=== PATIENT | male | born 1995 | race Caucasian/White ===

== ENCOUNTER 2021-01-23 23:19 | Emergency (ER) | payer MEDICAID, OTHER ==
[~2021-01-23] VITALS: Ht 170.2 cm; Wt 87.0 kg
[2021-01-23] MEDS ORDERED: LORAZEPAM 2MG/ML CPJ IV STA (23:41)
[2021-01-23] MEDS ORDERED: ONDANSETRON HCL 4MG/2ML INJ IV STA (23:41)
[2021-01-23] MEDS ORDERED: SODIUM CHLORIDE 0.9% 1,000 ML IV ONE (23:45)
[2021-01-23 23:58] LABS: BASOPHILS % 1.2 % (0.0-2.0); EOSINOPHILS % 0.9 % (0.0-5.0); HEMATOCRIT. 41.3 % (42.0-52.0); LYMPHOCYTES % 25.7 % (20.0-50.0); MEAN CORPUSCULAR HEMOGLOBIN 28.5 pg (28.0-32.0); MEAN CORPUSCULAR VOLUME 83.9 fL (80.0-94.0); MEAN PLATELET VOLUME 7.8 fl (7.4-10.4); MONOCYTES % 7.2 % (2.0-8.0); PLATELET 523 x1000/uL (130-400); RED BLOOD CELL COUNT 4.92 mill/uL (4.7-6.1); RED CELL DISTRIBUTION WIDTH 14.8 % (11.6-14.6)
[2021-01-24 00:07] LABS: CHLORIDE 94 mEq/L (98-107)
[2021-01-24 00:11] LABS: ETHANOL BLOOD < 10 mg/dL
[2021-01-24 04:30] VITALS: BP 152/90
== END 2021-01-24 04:38 | disposition home or self-care (01) ==
LOC: ER 23:19
DX: I47.1 Supraventricular tachycardia (principal); T40.7X1A Poisoning by cannabis (derivatives), accidental (unintentional), initial encounter; Y92.9 Unspecified place or not applicable; F12.921 Cannabis use, unspecified with intoxication delirium; R11.10 Vomiting, unspecified
CPT/HCPCS: 36415; 71045; 80053; 80320; 84443; 84484; 85025; 93005; 96374; 96375; 99291; J2060; J2405; J7030; G0480

== ENCOUNTER 2023-01-19 20:17 | Emergency (ER) | payer MEDICAID ==
[~2023-01-19] VITALS: Ht 172.7 cm; Wt 86.5 kg
[~2023-01-19 20:17] MED LIST: OXYC-100 MT; OXYC-105 MT
[2023-01-19] MEDS ORDERED: HYDROMORPHONE HCL/PF 2MG/ML CPJ IV ONE ×2 (22:00→23:45)
[2023-01-19 22:30] LABS: BASOPHILS % 1.4 % (0.0-2.0); EOSINOPHILS % 2.4 % (0.0-5.0); HEMATOCRIT. 32.1 % (42.0-52.0); HEMOGLOBIN. 10.6 g/dL (14.0-18.0); LYMPHOCYTES % 19.5 % (20.0-50.0); MEAN CORPUSCULAR HEMOGLOBIN 31.1 pg (28.0-32.0); MEAN PLATELET VOLUME 7.7 fl (7.4-10.4); MONOCYTES % 7.8 % (2.0-8.0); NEUTROPHILS % 68.9 % (40.0-76.0); PLATELET 284 x1000/uL (130-400); RED BLOOD CELL COUNT 3.41 mill/uL (4.7-6.1); RED CELL DISTRIBUTION WIDTH 17.7 % (11.6-14.6)
[2023-01-19 22:36] LABS: PROTHROMBIN TIME 11.2 sec (9.6-11.0)
[2023-01-19 22:39] LABS: CHLORIDE 107 mEq/L (98-107)
[2023-01-20 00:20] VITALS: BP 117/84
[2023-01-20] MEDS ORDERED: OXYC-662 MT (13:17)
== END 2023-01-20 02:40 | disposition home or self-care (01) ==
LOC: ER 20:17
DX: G89.3 Neoplasm related pain (acute) (chronic) (principal); R10.84 Generalized abdominal pain; F12.90 Cannabis use, unspecified, uncomplicated; Z88.5 Allergy status to narcotic agent; Z88.8 Allergy status to other drugs, medicaments and biological substances
CPT/HCPCS: 36415; 71045; 80053; 83880; 84484; 85025; 85610; 93005; 96374; 96376; 99285; J1170; Z7610

== ENCOUNTER 2023-01-20 12:20 | Emergency (ER) | payer MEDICAID ==
[~2023-01-20] VITALS: Ht 172.7 cm; Wt 87.0 kg
[2023-01-20] MEDS ORDERED: ACETAMINOPHEN 325MG TABLET PO ONE (12:45)
[2023-01-20 13:01] VITALS: BP 117/87
[2023-01-20] MEDS ORDERED: OXYC-662 MT (13:17)
== END 2023-01-20 13:38 | disposition home or self-care (01) ==
LOC: ER 12:25
DX: G89.29 Other chronic pain (principal)
CPT/HCPCS: 99283

== ENCOUNTER 2023-01-24 22:36 | Emergency (ER) | payer MEDICAID ==
[~2023-01-24] VITALS: Ht 172.7 cm; Wt 93.1 kg
[~2023-01-24 22:36] MED LIST changes: +OXYC-662 MT
[2023-01-24 22:45] VITALS: BP 150/81
[2023-01-24] MEDS ORDERED: KETOROLAC 60MG/2ML VIAL IM ONE (23:30)
== END 2023-01-25 03:07 | disposition left against medical advice (07) ==
LOC: ER 22:36
DX: G89.29 Other chronic pain (principal); Z85.9 Personal history of malignant neoplasm, unspecified; F12.10 Cannabis abuse, uncomplicated; Z79.899 Other long term (current) drug therapy
CPT/HCPCS: 99281

== ENCOUNTER 2023-02-24 17:16 | Emergency (ER) | payer MEDICAID ==
[~2023-02-24] VITALS: Ht 172.7 cm; Wt 87.0 kg
[2023-02-24 23:15] LABS: BASOPHILS % 0.9 % (0.0-2.0); EOSINOPHILS % 0.5 % (0.0-5.0); HEMATOCRIT. 32.5 % (42.0-52.0); HEMOGLOBIN. 10.8 g/dL (14.0-18.0); LYMPHOCYTES % 15.2 % (20.0-50.0); MEAN CORPUSCULAR HEMOGLOBIN 30.3 pg (28.0-32.0); MEAN CORPUSCULAR VOLUME 90.8 fL (80.0-94.0); MONOCYTES % 9.2 % (2.0-8.0); NEUTROPHILS % 74.2 % (40.0-76.0); PLATELET 275 x1000/uL (130-400); RED BLOOD CELL COUNT 3.58 mill/uL (4.7-6.1); RED CELL DISTRIBUTION WIDTH 17.8 % (11.6-14.6)
[2023-02-24 23:21] LABS: CHLORIDE 108 mEq/L (98-107)
[2023-02-24 23:25] LABS: D-DIMER 1.86 mg/L FEU (<0.50); INR 0.9; PROTHROMBIN TIME 10.2 sec (9.6-11.0)
[2023-02-24] MEDS ORDERED: HYDROMORPHONE HCL/PF 2MG/ML CPJ IV ONE (23:30)
[2023-02-25] MEDS ORDERED: HYDROMORPHONE HCL/PF 2MG/ML CPJ IV ONE (00:30)
[2023-02-25] MEDS ORDERED: DIPHENHYDRAMINE 50MG/ML VIAL IV ONE ×2 (00:45→02:45)
[2023-02-25] MEDS ORDERED: PREDNISONE 20MG TABLET PO ONE (00:45)
[2023-02-25] MEDS ORDERED: SODIUM CHLORIDE 0.9% 1,000 ML IV ONE (01:30)
[2023-02-25] MEDS ORDERED: IOHEXOL-350 100 ML BOTTLE ONE (02:02)
[2023-02-25] MEDS ORDERED: DIPHENHYDRAMINE 25MG CAPSULE PO ONE (02:15)
[2023-02-25 03:37] VITALS: BP 121/69
== END 2023-02-25 03:38 | disposition left against medical advice (07) ==
LOC: ER 17:16
DX: R06.02 Shortness of breath (principal); F12.10 Cannabis abuse, uncomplicated; Z91.041 Radiographic dye allergy status; Z98.890 Other specified postprocedural states
CPT/HCPCS: 36415; 71045; 71275; 80053; 84484; 85025; 85379; 85610; 93005; 96361; 96374; 96375; 96376; 99285; J1170; J1200; J7030; J7512; Q0163; Q9967; Z7610

== ENCOUNTER 2023-03-05 08:29 | Emergency (ER) | payer MEDICAID ==
[~2023-03-05] VITALS: Ht 172.7 cm; Wt 87.0 kg
[2023-03-05 08:49] VITALS: BP 130/87
== END 2023-03-05 11:23 | disposition home or self-care (01) ==
LOC: ER 08:29
DX: R07.89 Other chest pain (principal); Z76.5 Malingerer [conscious simulation]; Z91.041 Radiographic dye allergy status; Z88.6 Allergy status to analgesic agent; Z98.890 Other specified postprocedural states
CPT/HCPCS: 71045; 93005; 99283